=== PATIENT | female | born 1975 | race Caucasian/White ===

== ENCOUNTER 2022-09-23 23:52 | Emergency (ER) | payer MEDICARE ==
[~2022-09-23] VITALS: Ht 157.5 cm; Wt 71.7 kg
[~2022-09-23 23:52] MED LIST: ADDERALL 30 MG30 MG PO; ALL DAY ALLERGY10 M1 PO; ALLEGRA-D 24 H1 EACH PO; AMBIEN10 MG PO; BACLOFEN10 MG PO; CELEBREX200 MG PO; CYCLOBENZAPRINE10 MG PO; CYMBALTA60 MG; CYMBALTA60 MG PO; DICLOFENAC SODI75 MG PO; KLONOPIN0.5 MG PO; LAMICTAL100 MG PO; LYRICA100 MG PO; MEDROL4 MG PO; MORPHINE SULFAT30 M1 PO; MS CONTIN60 MG; PROTONIX IV40 MG PO; TRAZODONE HCL50 MG PO; VITAMIN D-32000 UNIT PO; XANAX2 MG; ZANAFLEX4 M1 PO
[2022-09-24] MEDS ORDERED: KETOROLAC TROMETHAMINE 60 MG/2 ML VIAL IM ONE (00:45)
[2022-09-24] MEDS ORDERED: METHOCARBAMOL 750 MG TAB PO ONE (00:45)
== END 2022-09-24 04:00 | disposition home or self-care (01) ==
LOC: ER 09-24
DX: M51.36 Other intervertebral disc degeneration, lumbar region (principal); M47.816 Spondylosis without myelopathy or radiculopathy, lumbar region; M48.07 Spinal stenosis, lumbosacral region
CPT/HCPCS: 72131; 99284; J1885

== ENCOUNTER 2024-03-12 20:11 | Emergency (ER) | payer MEDICARE ==
[~2024-03-12] VITALS: Ht 157.5 cm; Wt 74.8 kg
[~2024-03-12 20:11] MED LIST changes: +AUGMENTIN 500-1 EACH PO; +CEFDINIR300 MG PO; +PYRIDIUM200 MG PO; +REGLAN5 MG PO
[2024-03-12 20:27] VITALS: TEMP 99.1
[2024-03-12] MEDS ORDERED: ONDANSETRON HCL 4 MG ORAL DISINTEGRATING TAB PO ONE (20:30)
[2024-03-12 20:43] LABS: BASOPHILS % 0.1 % (0.0-1.0); EOSINOPHILS # (AUTO) 0.1 (0.0-0.4); HEMATOCRIT 38.4 % (34.2-44.1); HEMOGLOBIN 11.4 g/dL (12.0-16.0); LYMPHOCYTES # (AUTO) 2.1 (1.0-3.2); LYMPHOCYTES % 21.3 % (18.0-39.1); MEAN CORPUSCULAR HEMOGLOBIN 22.6 pg (28-32); MEAN CORPUSCULAR HGB CONC 29.7 g/dL (31-35); MONOCYTES # (AUTO) 0.6 (0.2-0.8); MONOCYTES % 6.2 % (4.4-11.3); NEUTROPHILS # (AUTO) 6.9 (2.1-6.9); NEUTROPHILS % 71.1 % (38.7-80.0); PLATELET COUNT 326 x10e3/uL (140-360); RED BLOOD COUNT 5.05 x10e6/uL (3.6-5.1); RED CELL DISTRIBUTION WIDTH 18.3 % (11.7-14.4); WHITE BLOOD COUNT 9.71 x10e3/uL (4.8-10.8)
[2024-03-12] MEDS: ONDANSETRON HCL INJ 2MG/ML 2ML 2 MG/ML VIAL IV STA (20:45)
[2024-03-12] MEDS: SODIUM CHLORIDE 0.9% 1000ML 1,000 ML IV STA (20:45)
[2024-03-12] MEDS: KETOROLAC TROMETHAMINE 30 MG/ML VIAL IV STA (20:46)
[2024-03-12 20:58] LABS: ALBUMIN 3.8 g/dL (3.5-5.0); ANION GAP 14.1 mmol/L (8-16); BILIRUBIN,TOTAL 0.2 mg/dL (0.2-1.2); CALCIUM 9.2 mg/dL (8.4-10.2); CREATININE, SERUM 0.92 mg/dL (0.57-1.11); POTASSIUM 4.1 mmol/L (3.5-5.1); TOTAL PROTEIN 7.5 g/dL (6.5-8.1)
[2024-03-12 20:58] LABS: BILIRUBIN,URINE NEGATIVE (NEGATIVE); CLARITY,URINE SL CLOUDY (CLEAR); COLOR,URINE ORANGE (YELLOW); GLUCOSE, URINE 1+ (NEGATIVE); KETONES,URINE NEGATIVE (NEGATIVE); LEUKOCYTE ESTERASE ,URINE TRACE (NEGATIVE); NITRITE,URINE POSITIVE (NEGATIVE); PH,URINE 5.5 (5 - 7); PROTEIN,URINE DIPSTICK 2+ (NEGATIVE); URINE UROBILINOGEN 2 mg/dL (0.2 - 1)
[2024-03-12 21:10] LABS: BACTERIA,URINE MODERATE /HPF; RBC,URINE 0-5 /HPF (0-5)
[2024-03-12 21:11] LABS: EPITHELIAL CELLS,URINE FEW /LPF; TRANSITIONAL EPI CELLS,URINE FEW
[2024-03-12 23:42] VITALS: PULSE 98; RESP 18; O2SAT 97
== END 2024-03-13 00:10 | disposition home or self-care (01) ==
LOC: ER 20:24
DX: R30.0 Dysuria (principal); N39.0 Urinary tract infection, site not specified; F41.9 Anxiety disorder, unspecified; F32.A Depression, unspecified; M54.9 Dorsalgia, unspecified; G89.29 Other chronic pain
CPT/HCPCS: 36415; 74176; 80053; 81001; 83690; 84702; 85025; 99284; J1885; J2405; J7030

== ENCOUNTER 2024-12-04 03:33 | Inpatient (IN) | payer MEDICARE ==
[~2024-12-04] VITALS: Ht 154.9 cm; Wt 81.6 kg
[2024-12-04] VITALS (9 sets, daily range): BP systolic 127–155; BP diastolic 90–100; PULSE 85–117; RESP 18–20; TEMP 96.2–98.2; O2SAT 94–99
[~2024-12-04 03:33] MED LIST changes: +ONDANSETRON ODT4 MG SL
[2024-12-04] MEDS: ONDANSETRON HCL INJ 2MG/ML 2ML 2 MG/ML VIAL IV STA ×2 (04:14→04:15)
[2024-12-04] MEDS ORDERED: ONDANSETRON HCL INJ 2MG/ML 2ML 2 MG/ML VIAL IV PRN (04:15)
[2024-12-04] MEDS: Morphine 4mg INJECTION 4 MG/ML INJ IV STA ×2 (04:16→09:13)
[2024-12-04] MEDS: KETOROLAC TROMETHAMINE 30 MG/ML VIAL IV STA (04:16)
[2024-12-04] MEDS: ACETAMINOPHEN 325 MG TAB PO STA (04:17)
[2024-12-04] MEDS: SODIUM CHLORIDE 0.9% 1000ML 1,000 ML IV STA (04:18)
[2024-12-04 04:21] LABS: BASOPHILS % 0.1 % (0.0-1.0); EOSINOPHILS % 0.3 % (0.0-6.0); HEMOGLOBIN 11.9 g/dL (12.0-16.0); LYMPHOCYTES % 20.5 % (18.0-39.1); MEAN CORPUSCULAR HEMOGLOBIN 23.8 pg (28-32); MEAN CORPUSCULAR HGB CONC 30.5 g/dL (31-35); MEAN CORPUSCULAR VOLUME 78.2 fL (81-99); MONOCYTES # (AUTO) 0.6 (0.2-0.8); MONOCYTES % 6.6 % (4.4-11.3); NEUTROPHILS # (AUTO) 6.9 (2.1-6.9); NEUTROPHILS % 72.4 % (38.7-80.0); PLATELET COUNT 310 x10e3/uL (140-360); RED BLOOD COUNT 4.99 x10e6/uL (3.6-5.1); RED CELL DISTRIBUTION WIDTH 15.5 % (11.7-14.4); WHITE BLOOD COUNT 9.58 x10e3/uL (4.8-10.8)
[2024-12-04 04:27] LABS: CLARITY,URINE CLEAR (CLEAR); COLOR,URINE ORANGE (YELLOW)
[2024-12-04 04:28] LABS: BILIRUBIN,URINE SMALL (NEGATIVE); GLUCOSE, URINE 1+ (NEGATIVE); KETONES,URINE TRACE (NEGATIVE); LEUKOCYTE ESTERASE ,URINE LARGE (NEGATIVE); NITRITE,URINE POSITIVE (NEGATIVE); PH,URINE 5 (5 - 7); PROTEIN,URINE DIPSTICK 2+ (NEGATIVE)
[2024-12-04 04:33] LABS: BACTERIA,URINE MODERATE /HPF; EPITHELIAL CELLS,URINE MODERATE /LPF; MUCUS,URINE MODERATE; RBC,URINE 0-5 /HPF (0-5); WBC,URINE (MAN) 0-5 /HPF (0-5)
[2024-12-04 04:47] LABS: ALBUMIN 3.8 g/dL (3.5-5.0); ALBUMIN/GLOBULIN RATIO 1.1 (0.8-2.0); ANION GAP 16.5 mmol/L (8-16); BILIRUBIN,TOTAL 0.6 mg/dL (0.2-1.2); CALCIUM 8.9 mg/dL (8.4-10.2); CREATININE, SERUM 1.33 mg/dL (0.57-1.11); POTASSIUM 3.5 mmol/L (3.5-5.1); TOTAL PROTEIN 7.4 g/dL (6.5-8.1)
[2024-12-04] MEDS: HYDRALAZINE HCL 20 MG/ML VIAL IV STA (05:40)
[2024-12-04] MEDS: DIPHENHYDRAMINE HCL INJ 50 MG/ML VIAL IV STA (05:40)
[2024-12-04] MEDS ORDERED: ONDANSETRON HCL INJ 2MG/ML 2ML 2 MG/ML VIAL IV STA (05:46)
[2024-12-04] MEDS: SODIUM CHLORIDE 0.9% 1000ML 1,000 ML IV SCH (06:07)
[2024-12-04] MEDS ORDERED: ACETAMINOPHEN 325 MG TAB PO PRN (08:15)
[2024-12-04] MEDS ORDERED: HYDRALAZINE HCL 20 MG/ML VIAL IV PRN (08:15)
[2024-12-04] MEDS: PREGABALIN 50 MG CAP PO SCH (09:30)
[2024-12-04] MEDS: METOPROLOL TARTRATE 25 MG TAB PO SCH (09:30)
[2024-12-04] MEDS: Morphine 2mg Syringe 2 MG/ML SYR IV PRN ×2 (09:31→13:04)
[2024-12-04] MEDS ORDERED: ADDERALL XR 1515 MG (09:37)
[2024-12-04] MEDS ORDERED: FENTANYL1 EAC1 (09:42)
[2024-12-04] MEDS ORDERED: METHOCARBAMOL750 MG PO (09:45)
[2024-12-04] MEDS ORDERED: FENTANYL 50 MCG/HR PATCH TD SCH (12:30)
[2024-12-04] MEDS ORDERED: ONDANSETRON HCL 4 MG ORAL DISINTEGRATING TAB SL PRN (12:30)
[2024-12-04] MEDS: METOCLOPRAMIDE HCL 10 MG TAB PO PRN (13:02)
[2024-12-04] MEDS ORDERED: TUMS300 MG PO (13:27)
[2024-12-04] MEDS ORDERED: METOCLOPRAMIDE H5 MG PO (13:34)
[2024-12-04] MEDS: PHENAZOPYRIDINE HCL 100 MG TAB PO SCH (14:38)
[2024-12-04] MEDS: METHOCARBAMOL 500 MG TAB PO SCH (14:38)
[2024-12-04] MEDS: ONDANSETRON HCL INJ 2MG/ML 2ML 2 MG/ML VIAL IV PRN (14:43)
[2024-12-04] MEDS: HYDROMORPHONE 1MG/1ML INJ IV PRN (16:34)
[2024-12-04] MEDS: METOCLOPRAMIDE HCL 10 MG TAB PO SCH (17:35)
[2024-12-04] MEDS: CALCIUM CARBONATE 500 MG CHEWABLE TABS PO PRN (17:35)
[2024-12-04] MEDS: MORPHINE SULFATE IR 15 MG TABLET PO PRN (23:52)
[2024-12-05] VITALS (7 sets, daily range): BP systolic 101–145; BP diastolic 52–93; PULSE 80–92; RESP 18–19; TEMP 97.2–98.4; O2SAT 94–100
[2024-12-05] MEDS: ZOLPIDEM TARTRATE 10 MG TAB PO PRN (03:42)
[2024-12-05 05:06] LABS: BASOPHILS % 0.1 % (0.0-1.0); EOSINOPHILS # (AUTO) 0.1 (0.0-0.4); EOSINOPHILS % 1.6 % (0.0-6.0); HEMATOCRIT 33.2 % (34.2-44.1); HEMOGLOBIN 10.1 g/dL (12.0-16.0); LYMPHOCYTES # (AUTO) 2.1 (1.0-3.2); LYMPHOCYTES % 27.8 % (18.0-39.1); MEAN CORPUSCULAR HGB CONC 30.4 g/dL (31-35); MEAN CORPUSCULAR VOLUME 78.9 fL (81-99); MONOCYTES # (AUTO) 0.5 (0.2-0.8); NEUTROPHILS # (AUTO) 4.7 (2.1-6.9); NEUTROPHILS % 63.2 % (38.7-80.0); PLATELET COUNT 265 x10e3/uL (140-360); RED BLOOD COUNT 4.21 x10e6/uL (3.6-5.1); RED CELL DISTRIBUTION WIDTH 15.5 % (11.7-14.4); WHITE BLOOD COUNT 7.42 x10e3/uL (4.8-10.8)
[2024-12-05 05:52] LABS: ALBUMIN 2.9 g/dL (3.5-5.0); ANION GAP 12.6 mmol/L (8-16); BILIRUBIN,TOTAL 0.3 mg/dL (0.2-1.2); CALCIUM 8.3 mg/dL (8.4-10.2); CREATININE, SERUM 1.37 mg/dL (0.57-1.11); POTASSIUM 3.6 mmol/L (3.5-5.1); TOTAL PROTEIN 5.8 g/dL (6.5-8.1)
[2024-12-05] MEDS: CELECOXIB 200 MG CAP PO SCH (09:00)
[2024-12-05 13:10] LABS: FERRITIN 59.82 ng/mL (4.63-204.00)
[2024-12-05] MEDS: METOPROLOL TARTRATE 25 MG TAB PO SCH (21:06)
[2024-12-06] VITALS (9 sets, daily range): BP systolic 104–143; BP diastolic 57–98; PULSE 76–92; RESP 18–20; TEMP 97.2–99.1; O2SAT 95–98
[2024-12-06] MEDS: HYDROMORPHONE 1MG/1ML INJ IV PRN (13:37)
[2024-12-06] MEDS ORDERED: MIDAZOLAM HCL 2 MG/2 ML VIAL ONE ×2 (15:22→15:59)
[2024-12-06] MEDS ORDERED: FENTANYL CITRATE/PF 100MCG/2 ML INJ ONE ×2 (15:22→15:59)
[2024-12-06] MEDS ORDERED: LIDOCAINE HCL 2% LOCAL INJ 5 ML SDV VIAL INJ ONE ×2 (15:23→15:58)
[2024-12-06] MEDS ORDERED: PROPOFOL IV EMULSION 10 MG/ML 20 ML VIAL ONE ×2 (15:23→15:59)
[2024-12-06] MEDS ORDERED: ONDANSETRON HCL INJ 2MG/ML 2ML 2 MG/ML VIAL ONE (15:58)
[2024-12-06] MEDS ORDERED: GENTAMICIN SULFATE 40 MG/ML 2 ML VIAL ONE (16:43)
[2024-12-06] MEDS ORDERED: SODIUM CHLORIDE 0.9% 100 ML ONE (16:44)
[2024-12-06] MEDS: FERROUS SULFATE 325 MG TAB PO SCH (17:00)
[2024-12-06] MEDS: LIDOCAINE HCL 1% 2 ML AMP ONE (17:36)
[2024-12-06] MEDS: PHENAZOPYRIDINE HCL 100 MG TAB PO PRN (20:07)
[2024-12-07 03:06] VITALS: BP 120/79; PULSE 88; RESP 17; TEMP 97.5; O2SAT 98
[2024-12-07 08:53] VITALS: BP 112/53; PULSE 76; RESP 18; TEMP 98; O2SAT 98
[2024-12-07 09:13] VITALS: BP 112/53; PULSE 76; RESP 18; TEMP 98; O2SAT 98
[2024-12-07] MEDS ORDERED: FENTANYL 50 MCG/HR PATCH TD SCH (18:00)
== END 2024-12-07 13:00 | disposition home or self-care (01) | DRG 654 ==
LOC: ER 03:47 → ERHOLD 04:06 → MED/SURG 06:01
PROVIDERS: ADMIT Internal Medicine; ATTEND Internal Medicine
PROC: 0T7B8ZZ Dilation of Bladder, Via Natural or Artificial Opening Endoscopic (ICD-10-PCS; 2024-12-06)
PROC: BT141ZZ Fluoroscopy of Kidneys, Ureters and Bladder using Low Osmolar Contrast (ICD-10-PCS; 2024-12-06)
PROC: 0UJH7ZZ Inspection of Vagina and Cul-de-sac, Via Natural or Artificial Opening (ICD-10-PCS; 2024-12-06)
PROC: 0T788ZZ Dilation of Bilateral Ureters, Via Natural or Artificial Opening Endoscopic (ICD-10-PCS; principal; 2024-12-06 16:27)
DX: T83.518A Infection and inflammatory reaction due to other urinary catheter, initial encounter (principal); Z16.24 Resistance to multiple antibiotics; N30.10 Interstitial cystitis (chronic) without hematuria; B96.89 Other specified bacterial agents as the cause of diseases classified elsewhere; N31.9 Neuromuscular dysfunction of bladder, unspecified; R33.9 Retention of urine, unspecified; N39.3 Stress incontinence (female) (male); N81.3 Complete uterovaginal prolapse; N36.41 Hypermobility of urethra; N32.89 Other specified disorders of bladder; N28.89 Other specified disorders of kidney and ureter; G89.4 Chronic pain syndrome; K31.84 Gastroparesis; M54.9 Dorsalgia, unspecified; G62.9 Polyneuropathy, unspecified; D64.9 Anemia, unspecified; R00.0 Tachycardia, unspecified; F90.9 Attention-deficit hyperactivity disorder, unspecified type; F32.9 Major depressive disorder, single episode, unspecified; F60.3 Borderline personality disorder; E66.9 Obesity, unspecified; Z68.34 Body mass index [BMI] 34.0-34.9, adult; Y84.6 Urinary catheterization as the cause of abnormal reaction of the patient, or of later complication, without mention of misadventure at the time of the procedure; Y92.009 Unspecified place in unspecified non-institutional (private) residence as the place of occurrence of the external cause; Z71.3 Dietary counseling and surveillance; F41.8 Other specified anxiety disorders; Z87.11 Personal history of peptic ulcer disease; Z79.891 Long term (current) use of opiate analgesic; Z79.899 Other long term (current) drug therapy
CPT/HCPCS: 36415; 74420; 80053; 81001; 81025; 82607; 82728; 82746; 83540; 83605; 83615; 83690; 84466; 85025; 85045; 87040; 87086; 93005; 99284; J0360; J1171; J1580; J1885; J2003; J2250; J2270; J2405; J2543; J7030; J7050